=== PATIENT | female | born 1955 | race Caucasian/White ===

== ENCOUNTER 2016-10-17 16:24 | Emergency (ER) | payer OTHER ==
[~2016-10-17] VITALS: Ht 162.6 cm; Wt 79.3 kg
[~2016-10-17 16:24] MED LIST: AMANTADINE100 MG PO; ATORVASTATIN CA80 MG PO; Advair HFA 230/21 IH; Aspirin E.C. PO; BUSPAR15 MG PO; BUSPAR5 MG PO; BUSPIRONE HCL15 MG PO; Buspar PO; CELEXA40 MG PO; CLONAZEPAM2 MG PO; CLOPIDOGREL75 MG PO; DESYREL100 MG PO; GABAPENTIN600 MG PO; HYDROCODON-ACE1 EAC7 PO; KEFLEX500 MG PO; KLONOPIN0.5 M1 NG; KLONOPIN2 MG PO; KlonoPIN PO; LANTUS 3 M100 UNITS1 SC; LEVEMIR FL100 UNITS/ SC; LEVEMIR100 UNIT/1 IJ; LEXAPRO20 MG PO; LO-DOSE ASPIRIN81 M1 PO; LOPRESSOR25 MG PO; MECLIZINE HCL25 MG PO; NEURONTIN600 MG PO; NITROSTAT0.4 MG SL; NOVOLOG 10100 UNITS/ SC; Neurontin PO; OXCARBAZEPINE600 MG PO; OXTELLAR XR600 MG PO; PERCOCET 5/31 TABLET PO; PLAVIX75 MG PO; PROMETHAZINE HC25 M1 PO; PROTONIX40 MG PO; RANITIDINE HCL150 MG PO; REGLAN10 MG PO; Reglan PO; SIMVASTATIN80 MG; SYMMETREL100 M2 PO; SYMMETREL100 MG PO; THEO-DUR,THEOC200 MG PO; TRAMADOL HCL50 MG PO; TRAZODONE HCL100 MG PO; TRICOR145 MG PO; TRILEPTAL300 MG PO; TRILEPTAL600 MG PO; TYLENOL REGULA325 MG PO; VICODIN 5-3001 EACH PO; ZESTORETIC 20-1 EAC1 NG; ZOFRAN ODT4 MG PO; ZOFRAN4 MG PO; [UNRECOGNIZED DRUG - REMARK]; celeXA PO
[2016-10-17 17:25] LABS: EOSINOPHIL (%) 0.9 % (0-5); EOSINOPHIL COUNT 0.1 K/uL (0-0.3); HEMATOCRIT 32.9 % (36.0-46.0); IMMATURE GRANULOCYTE (%) 0.4 % (0.0-0.7); IMMATURE GRANULOCYTE COUNT 0.2 K/uL; MCH 29.2 PG (29.0-34.0); MCV 85.9 FL (83-99); MEAN PLAT.VOLUME 10.1 uM^3 (9.5-12.4); MONOCYTE (%) 5.5 % (3-12); MONOCYTE COUNT 0.3 K/uL (0-0.8); NEUTROPHIL (%) 55.3 % (45-76); NEUTROPHIL COUNT 2.9 K/uL (1.8-6.4); PLATELET COUNT 180 K/uL (156-360); RBC DIS.WIDTH-CV 13.6 % (11.8-14.6); RBC DIS.WIDTH-SD 41.6 % (39-53); RED BLOOD COUNT 3.83 M/uL (3.80-5.20); WHITE BLOOD COUNT 5.3 K/uL (4.1-10.2)
[2016-10-17 17:34] LABS: INTER. NORMALIZED RATIO 1.1; PROTHROMBIN TIME 11.1 (9.2-11.2); PTT 24.8 (25-32)
[2016-10-17 17:43] LABS: CHLORIDE 105 mEq/L (99-109); POTASSIUM 3.8 mEq/L (3.7-5.4); SODIUM 140 mEq/L (136-147)
[2016-10-17 17:44] LABS: MAGNESIUM 1.5 mg/dL (1.3-2.7)
[2016-10-17 17:45] LABS: GLUCOSE 138 mg/dL (70-99)
[2016-10-17 17:46] LABS: ANION GAP 10 MEQ/L (2-14)
[2016-10-17 17:49] LABS: GFR ESTIMATE (CALCULATED) > 59 mL/min/; UREA NITROGEN (BUN) 14 mg/dL (9-23)
[2016-10-17 17:51] LABS: TROP-I INTERPRETATION NEGATIVE; TROPONIN-I < 0.01 ng/mL (0.0-0.30)
[2016-10-17 20:02] VITALS: BP 109/54
== END 2016-10-17 20:13 | disposition left against medical advice (07) ==
LOC: EME → EDBD 16:24 → EME 20:13
PROVIDERS: Emergency Medicine
DX: R07.9 Chest pain, unspecified (principal); E11.9 Type 2 diabetes mellitus without complications; J44.9 Chronic obstructive pulmonary disease, unspecified; I10 Essential (primary) hypertension; I25.2 Old myocardial infarction; G89.29 Other chronic pain; Z85.820 Personal history of malignant melanoma of skin; Z79.4 Long term (current) use of insulin; Z79.82 Long term (current) use of aspirin; Z87.891 Personal history of nicotine dependence
CPT/HCPCS: 71010; 80048; 83735; 84484; 85025; 85610; 85730; 93005; 99281; 99285

== ENCOUNTER 2016-12-17 18:41 | Emergency (ER) | payer OTHER ==
[~2016-12-17] VITALS: Ht 157.5 cm; Wt 83.4 kg
[2016-12-17 21:56] VITALS: BP 134/75
== END 2016-12-17 21:56 | disposition home or self-care (01) ==
LOC: RME 18:41 → EME 18:41 → RME 21:56
PROC: 0HQ0XZZ Repair Scalp Skin, External Approach (ICD-10-PCS; principal; 2016-12-17)
DX: S01.01XA Laceration without foreign body of scalp, initial encounter (principal); E11.9 Type 2 diabetes mellitus without complications; I10 Essential (primary) hypertension; I25.2 Old myocardial infarction; W01.198A Fall on same level from slipping, tripping and stumbling with subsequent striking against other object, initial encounter; Z79.01 Long term (current) use of anticoagulants
CPT/HCPCS: 70450; 99281; 99284

== ENCOUNTER 2017-02-17 17:32 | Inpatient (IN) | payer OTHER ==
[~2017-02-17] VITALS: Ht 165.1 cm; Wt 76.9 kg
[2017-02-17 18:03] LABS: EOSINOPHIL (%) 2.3 % (0-5); EOSINOPHIL COUNT 0.1 K/uL (0-0.3); HEMATOCRIT 36.5 % (36.0-46.0); IMMATURE GRANULOCYTE COUNT 0.1 K/uL; INSTRUMENT ABS NEUTROPHIL CT 2.8 K/uL; LYMPHOCYTE COUNT 1.6 K/uL (1.0-2.8); MCH 30.7 PG (29.0-34.0); MCHC 34.2 G/DL (30.0-36.0); MCV 89.7 FL (83-99); MONOCYTE (%) 5.2 % (3-12); MONOCYTE COUNT 0.3 K/uL (0-0.8); NEUTROPHIL (%) 58.1 % (45-76); NEUTROPHIL COUNT 2.8 K/uL (1.8-6.4); PLATELET COUNT 166 K/uL (156-360); RBC DIS.WIDTH-CV 13.4 % (11.8-14.6); RBC DIS.WIDTH-SD 43.4 % (39-53); RED BLOOD COUNT 4.07 M/uL (3.80-5.20); WHITE BLOOD COUNT 4.9 K/uL (4.1-10.2)
[2017-02-17 18:22] LABS: TROP-I INTERPRETATION NEGATIVE; TROPONIN-I < 0.01 ng/mL (0.0-0.30)
[2017-02-17 18:37] LABS: ADD MIUA? NO; BILIRUBIN NEGATIVE; BLOOD NEGATIVE; COLOR YELLOW ((YELLOW)); GLUCOSE (STRIP) >=500; KETONES NEGATIVE; LEUKOCYTES NEGATIVE; NITRITE NEGATIVE; PROTEIN (STRIP) NEGATIVE; SPECIFIC GRAVITY 1.016 (1.000-1.030); UCUL ADDED? NO; UROBILINOGEN 0.2 MG/DL (0.2-1.0)
[2017-02-17 18:40] LABS: CHLORIDE 102 mEq/L (99-109); POTASSIUM 4.1 mEq/L (3.7-5.4); SODIUM 135 mEq/L (136-147)
[2017-02-17 18:43] LABS: GLUCOSE 368 mg/dL (70-99)
[2017-02-17 18:44] LABS: ANION GAP 11 MEQ/L (2-14)
[2017-02-17 18:45] LABS: TOTAL BILIRUBIN 0.4 mg/dL (0.0-1.0)
[2017-02-17 18:46] LABS: ALKALINE PHOSPHATASE 92 IU/L (3-129); GFR ESTIMATE (CALCULATED) > 59 mL/min/
[2017-02-17 18:47] LABS: UREA NITROGEN (BUN) 15 mg/dL (9-23)
[2017-02-17 19:02] LABS: PROTHROMBIN TIME 10.5 (9.2-11.2)
[2017-02-17] MEDS ORDERED: HYDROCODON-ACE1 EAC9 PO (22:46)
[2017-02-17] MEDS ORDERED: BACTRIM,SEPT1 TABLET PO (22:47)
[2017-02-17] MEDS ORDERED: GABAPENTIN600 MG PO (22:48)
[2017-02-17] MEDS ORDERED: TOPROL XL25 MG PO (22:49)
[2017-02-17] MEDS ORDERED: PRILOSEC20 MG PO (22:50)
[2017-02-17] MEDS ORDERED: LEXAPRO20 MG PO (22:52)
[2017-02-18] VITALS: BP 139/65
[2017-02-18 03:55] VITALS: BP 124/57
[2017-02-18 07:29] LABS: HEMATOCRIT 32.6 % (36.0-46.0); MCH 30.6 PG (29.0-34.0); MCHC 33.7 G/DL (30.0-36.0); MCV 90.6 FL (83-99); MEAN PLAT.VOLUME 10.3 uM^3 (9.5-12.4); PLATELET COUNT 188 K/uL (156-360); RBC DIS.WIDTH-CV 13.2 % (11.8-14.6); RBC DIS.WIDTH-SD 43.8 % (39-53); WHITE BLOOD COUNT 4.1 K/uL (4.1-10.2)
[2017-02-18 07:30] LABS: Estimated Average Glucose 192 mg/dL (70-123); HEMOGLOBIN A1c (GLYCOHEMOGLOB) 8.3 % HGB (Below 5.7)
[2017-02-18 07:35] LABS: POINT-OF-CARE METER ID UU14188625
[2017-02-18 07:52] VITALS: BP 139/66
[2017-02-18 08:00] LABS: ALKALINE PHOSPHATASE 82 IU/L (3-129); ANION GAP 11 MEQ/L (2-14); CHLORIDE 104 MEQ/L (99-109); GFR ESTIMATE (CALCULATED) > 59 mL/min/; GLUCOSE 311 mg/dL (70-99); HDL CHOLESTEROL 27 MG/DL (Desirable>=50); NON-HDL CHOLESTEROL 98 mg/dL (Desirable<160); POTASSIUM 4.3 MEQ/L (3.7-5.4); SAMPLE HEMOLYSIS CHECK 0; SAMPLE ICTERIC CHECK 0; SAMPLE LIPEMIA CHECK 1; SODIUM 141 MEQ/L (136-147); TOTAL BILIRUBIN 0.3 MG/DL (0.0-1.0); TOTAL CHOLESTEROL 125 mg/dL (Desirable<200); TRIGLYCERIDES 667 MG/DL (Normal: <150); UREA NITROGEN (BUN) 12 mg/dL (9-23)
[2017-02-18 11:25] VITALS: BP 134/53
[2017-02-18 11:33] LABS: POINT-OF-CARE METER ID UU14188625
[2017-02-18 15:25] VITALS: BP 150/63
[2017-02-18 18:20] LABS: ADD MIUA? NO; BILIRUBIN NEGATIVE; BLOOD NEGATIVE; COLOR YELLOW ((YELLOW)); GLUCOSE (STRIP) >=500; KETONES NEGATIVE; LEUKOCYTES NEGATIVE; NITRITE NEGATIVE; PROTEIN (STRIP) NEGATIVE; SPECIFIC GRAVITY 1.016 (1.000-1.030); UCUL ADDED? NO; UROBILINOGEN 0.2 MG/DL (0.2-1.0)
[2017-02-18 20:00] VITALS: BP 133/59
[2017-02-18 21:46] LABS: POINT-OF-CARE METER ID UU14188625; POINT-OF-CARE USER ID BHSKTD
[2017-02-19] VITALS (8 sets, daily range): BP systolic 86–148; BP diastolic 48–67
[2017-02-19 07:32] LABS: POINT-OF-CARE METER ID UU14188625
[2017-02-19 11:46] LABS: POINT-OF-CARE METER ID UU14188625
[2017-02-19 21:02] LABS: POINT-OF-CARE METER ID UU14188625
[2017-02-20 03:41] VITALS: BP 123/60
[2017-02-20 07:25] VITALS: BP 106/54
[2017-02-20] MEDS ORDERED: METOPROLOL SUCC25 MG PO (11:42)
[2017-02-20] MEDS ORDERED: BUSPAR15 MG PO (11:43)
[2017-02-20 11:44] VITALS: BP 115/58
[2017-02-20] MEDS ORDERED: HYDROCODON-ACE1 EAC9 PO (12:52)
[2017-02-20] MEDS ORDERED: CLONAZEPAM2 MG PO (12:52)
== END 2017-02-20 15:24 | DRG 93 ==
LOC: EME 17:32 → EDOF 22:30 → 5SOUTH 22:30
PROVIDERS: Emergency Medicine; Internal Medicine; Physician Assistant Medical
DX: R29.6 Repeated falls (principal); I25.10 Atherosclerotic heart disease of native coronary artery without angina pectoris; J44.9 Chronic obstructive pulmonary disease, unspecified; I10 Essential (primary) hypertension; E11.42 Type 2 diabetes mellitus with diabetic polyneuropathy; K58.9 Irritable bowel syndrome, unspecified; F32.9 Major depressive disorder, single episode, unspecified; F41.9 Anxiety disorder, unspecified; K21.9 Gastro-esophageal reflux disease without esophagitis; E11.43 Type 2 diabetes mellitus with diabetic autonomic (poly)neuropathy; M19.90 Unspecified osteoarthritis, unspecified site; Z79.4 Long term (current) use of insulin; Z95.5 Presence of coronary angioplasty implant and graft
CPT/HCPCS: 70450; 70551; 71010; 72070; 72100; 72125; 74000; 80053; 80061; 81003; 82607; 82948; 83036; 84443; 84484; 85025; 85027; 85610; 93005; 93306; 93880; 97530 GO; 99281; 99285; J1644; J1815; J2270; J2405; J7030

== ENCOUNTER 2017-05-03 22:39 | Inpatient (IN) | payer OTHER ==
[~2017-05-03] VITALS: Ht 160 cm; Wt 85.7 kg
[~2017-05-03 22:39] MED LIST changes: +BACTRIM,SEPT1 TABLET PO; +HYDROCODON-ACE1 EAC9 PO; +METOPROLOL SUCC25 MG PO; -NOVOLOG 10100 UNITS/ SC; +NOVOLOG PE100 UNITS/ SC; +PRILOSEC20 MG PO; +TOPROL XL25 MG PO; -ZESTORETIC 20-1 EAC1 NG; +ZESTORETIC 20-1 EAC1 PO
[2017-05-03 23:48] LABS: EOSINOPHIL (%) 3.3 % (0-5); EOSINOPHIL COUNT 0.2 K/uL (0-0.3); HEMATOCRIT 28.8 % (36.0-46.0); IMMATURE GRANULOCYTE (%) 0.8 % (0.0-0.7); LYMPHOCYTE COUNT 2.3 K/uL (1.0-2.8); MCH 31.1 PG (29.0-34.0); MCHC 35.1 G/DL (30.0-36.0); MCV 88.6 FL (83-99); MONOCYTE (%) 5.2 % (3-12); MONOCYTE COUNT 0.3 K/uL (0-0.8); NEUTROPHIL (%) 42.1 % (45-76); PLATELET COUNT 148 K/uL (156-360); RBC DIS.WIDTH-CV 13.2 % (11.8-14.6); RBC DIS.WIDTH-SD 42.7 % (39-53); RED BLOOD COUNT 3.25 M/uL (3.80-5.20); WHITE BLOOD COUNT 4.8 K/uL (4.1-10.2)
[2017-05-03 23:54] LABS: PROTHROMBIN TIME 10.5 SEC (10.2-12.9)
[2017-05-04 00:06] LABS: CHLORIDE 102 mEq/L (99-109); POTASSIUM 4.3 mEq/L (3.7-5.4)
[2017-05-04 00:07] LABS: SODIUM 135 mEq/L (136-147)
[2017-05-04 00:08] LABS: GLUCOSE 174 mg/dL (70-99)
[2017-05-04 00:10] LABS: ANION GAP 10 MEQ/L (2-14)
[2017-05-04 00:12] LABS: GFR ESTIMATE (CALCULATED) > 59 mL/min/
[2017-05-04 00:13] LABS: UREA NITROGEN (BUN) 13 mg/dL (9-23)
[2017-05-04] MEDS ORDERED: CLONAZEPAM2 MG PO (00:25)
[2017-05-04] MEDS ORDERED: ASPIR 8181 M1 PO (00:27)
[2017-05-04] MEDS ORDERED: CYANOCOBALAM1000 MCG PO (00:27)
[2017-05-04] MEDS ORDERED: IBUPROFEN800 MG PO (00:27)
[2017-05-04 00:48] LABS: HDL CHOLESTEROL 34 MG/DL (Desirable>=50); LDL CHOLESTEROL 20 mg/dL (Desirable<100); NON-HDL CHOLESTEROL 74 mg/dL (Desirable<160); TOTAL CHOLESTEROL 108 mg/dL (Desirable<200); TRIGLYCERIDES 269 MG/DL (Normal: <150)
[2017-05-04 03:07] VITALS: BP 185/79
[2017-05-04 06:00] LABS: TROP-I INTERPRETATION NEGATIVE; TROPONIN-I < 0.01 ng/mL (0.0-0.30)
[2017-05-04 08:17] LABS: POINT-OF-CARE METER ID UU14188625
[2017-05-04 11:05] VITALS: BP 156/80
[2017-05-04 11:39] LABS: POINT-OF-CARE METER ID UU14188625
[2017-05-04 13:52] LABS: TROP-I INTERPRETATION NEGATIVE; TROPONIN-I < 0.01 ng/mL (0.0-0.30)
== END 2017-05-04 15:18 | disposition home or self-care (01) | DRG 103 ==
LOC: EME 22:39 → EDOF 05-04 00:56 → ENRESERV 05-04 00:59 → 5SOUTH 05-04 02:31
PROVIDERS: Emergency Medicine; Internal Medicine
DX: G44.209 Tension-type headache, unspecified, not intractable (principal); E11.42 Type 2 diabetes mellitus with diabetic polyneuropathy; I10 Essential (primary) hypertension; I25.10 Atherosclerotic heart disease of native coronary artery without angina pectoris; J44.9 Chronic obstructive pulmonary disease, unspecified; E78.5 Hyperlipidemia, unspecified; F32.9 Major depressive disorder, single episode, unspecified; F41.9 Anxiety disorder, unspecified; G25.81 Restless legs syndrome; G40.909 Epilepsy, unspecified, not intractable, without status epilepticus; K58.9 Irritable bowel syndrome, unspecified; M19.90 Unspecified osteoarthritis, unspecified site; I25.2 Old myocardial infarction; Z98.61 Coronary angioplasty status; Z79.02 Long term (current) use of antithrombotics/antiplatelets; Z79.82 Long term (current) use of aspirin; Z85.820 Personal history of malignant melanoma of skin; Z87.891 Personal history of nicotine dependence; Z80.6 Family history of leukemia; Z82.49 Family history of ischemic heart disease and other diseases of the circulatory system; Z79.4 Long term (current) use of insulin
CPT/HCPCS: 36415; 70450; 80048; 80053; 80061; 82948; 83036; 84484; 85025; 85610; 85730; 93005; 99281; 99285; J1650; J1815; J2270; J2765; J7030

== ENCOUNTER 2017-06-02 20:51 | Emergency (ER) | payer OTHER ==
[~2017-06-02] VITALS: Ht 162.6 cm; Wt 84.6 kg
[~2017-06-02 20:51] MED LIST changes: +ASPIR 8181 M1 PO; +CYANOCOBALAM1000 MCG PO; +IBUPROFEN800 MG PO
[2017-06-02 21:21] LABS: HEMATOCRIT 29.9 % (36.0-46.0); MCH 31.1 PG (29.0-34.0); MCHC 35.1 G/DL (30.0-36.0); MCV 88.5 FL (83-99); MEAN PLAT.VOLUME 8.6 uM^3 (9.5-12.4); PLATELET COUNT 148 K/uL (156-360); RBC DIS.WIDTH-CV 13.3 % (11.8-14.6); RBC DIS.WIDTH-SD 42.8 % (39-53); RED BLOOD COUNT 3.38 M/uL (3.80-5.20); WHITE BLOOD COUNT 4.7 K/uL (4.1-10.2)
[2017-06-02 21:29] LABS: CHLORIDE 94 mEq/L (99-109); POTASSIUM 3.8 mEq/L (3.7-5.4); SODIUM 129 mEq/L (136-147)
[2017-06-02 21:31] LABS: GLUCOSE 261 mg/dL (70-99)
[2017-06-02 21:33] LABS: ANION GAP 10 MEQ/L (2-14); TOTAL BILIRUBIN 0.4 mg/dL (0.0-1.0)
[2017-06-02 21:35] LABS: ALKALINE PHOSPHATASE 83 IU/L (3-129); GFR ESTIMATE (CALCULATED) > 59 mL/min/
[2017-06-02 21:36] LABS: UREA NITROGEN (BUN) 10 mg/dL (9-23)
[2017-06-02 21:37] LABS: DIRECT BILIRUBIN 0.2 mg/dL (0.0-0.3)
[2017-06-02 21:39] LABS: LIPASE 34 U/L (1.0-51.0)
[2017-06-02 22:13] LABS: ADD MIUA? YES; BILIRUBIN NEGATIVE; BLOOD NEGATIVE; COLOR STRAW ((YELLOW)); GLUCOSE (STRIP) 150; KETONES NEGATIVE; LEUKOCYTES TRACE; NITRITE NEGATIVE; PROTEIN (STRIP) NEGATIVE; SPECIFIC GRAVITY 1.011 (1.000-1.030); UROBILINOGEN 0.2 MG/DL (0.2-1.0)
[2017-06-02 22:28] LABS: BACTERIA NONE SEEN /HPF; EPITHELIAL CELLS RARE /HPF; MUCUS NONE SEEN /LPF; RED BLOOD CELLS 0-5 /HPF (0-5); UCUL ADDED? YES
[2017-06-03] MEDS ORDERED: CIPRO500 MG PO (00:13)
[2017-06-03 01:00] VITALS: BP 119/58
== END 2017-06-03 01:00 | disposition home or self-care (01) ==
LOC: EME → EDBD 20:51 → EME 06-03 01:00
PROVIDERS: Emergency Medicine
DX: N39.0 Urinary tract infection, site not specified (principal); R10.10 Upper abdominal pain, unspecified; E11.9 Type 2 diabetes mellitus without complications; J44.9 Chronic obstructive pulmonary disease, unspecified; E78.5 Hyperlipidemia, unspecified; I10 Essential (primary) hypertension; I25.2 Old myocardial infarction; K21.9 Gastro-esophageal reflux disease without esophagitis; Z79.4 Long term (current) use of insulin; Z79.02 Long term (current) use of antithrombotics/antiplatelets; Z87.891 Personal history of nicotine dependence; Z79.82 Long term (current) use of aspirin
CPT/HCPCS: 74177; 80048; 80076; 81003; 83690; 85027; 87086 GA; 93005; 99281; 99285; J1885; J2405; J7030

== ENCOUNTER → 2017-06-17 | Outpatient (CLI) | payer OTHER ==
[~2017-06-17] MED LIST changes: +CIPRO500 MG PO
== END | disposition home or self-care (01) ==
LOC: NUC 08:21
DX: R68.81 Early satiety (principal)
CPT/HCPCS: 78264; A9541

== ENCOUNTER 2017-07-13 10:15 | Emergency (ER) | payer OTHER ==
[~2017-07-13] VITALS: Ht 162.6 cm; Wt 84.3 kg
[2017-07-13 11:16] LABS: HEMATOCRIT 30.9 % (36.0-46.0); MCH 30.5 PG (29.0-34.0); MCHC 34.3 G/DL (30.0-36.0); MCV 88.8 FL (83-99); MEAN PLAT.VOLUME 9.5 uM^3 (9.5-12.4); PLATELET COUNT 150 K/uL (156-360); RBC DIS.WIDTH-CV 12.8 % (11.8-14.6); RBC DIS.WIDTH-SD 41.6 % (39-53); RED BLOOD COUNT 3.48 M/uL (3.80-5.20); WHITE BLOOD COUNT 4.5 K/uL (4.1-10.2)
[2017-07-13 11:23] LABS: PROTHROMBIN TIME 11.5 SEC (10.2-12.9)
[2017-07-13 11:25] LABS: PTT 26.3 SEC (25-37)
[2017-07-13 11:27] LABS: CHLORIDE 104 mEq/L (99-109); POTASSIUM 3.7 mEq/L (3.7-5.4); SODIUM 137 mEq/L (136-147)
[2017-07-13 11:29] LABS: GLUCOSE 163 mg/dL (70-99)
[2017-07-13 11:31] LABS: ANION GAP 11 MEQ/L (2-14)
[2017-07-13 11:33] LABS: GFR ESTIMATE (CALCULATED) > 59 mL/min/
[2017-07-13 11:34] LABS: UREA NITROGEN (BUN) 6 mg/dL (9-23)
[2017-07-13] MEDS ORDERED: REGLAN10 MG PO (13:41)
[2017-07-13] MEDS ORDERED: IMITREX25 MG PO (13:41)
[2017-07-13 13:59] VITALS: BP 158/82
== END 2017-07-13 14:01 | disposition home or self-care (01) ==
LOC: EME 10:15
PROVIDERS: Emergency Medicine
DX: R51 Headache (principal); I10 Essential (primary) hypertension; E11.9 Type 2 diabetes mellitus without complications; E78.5 Hyperlipidemia, unspecified; Z79.4 Long term (current) use of insulin; J44.9 Chronic obstructive pulmonary disease, unspecified; I25.2 Old myocardial infarction; K21.9 Gastro-esophageal reflux disease without esophagitis; G40.909 Epilepsy, unspecified, not intractable, without status epilepticus; F32.9 Major depressive disorder, single episode, unspecified; F41.9 Anxiety disorder, unspecified; Z87.442 Personal history of urinary calculi; Z88.8 Allergy status to other drugs, medicaments and biological substances; Z87.891 Personal history of nicotine dependence; Z85.820 Personal history of malignant melanoma of skin; Z79.82 Long term (current) use of aspirin
CPT/HCPCS: 70496; 80048; 81003; 85027; 85610; 85730; 99281; 99285; J2765; J3030; J7030

== ENCOUNTER 2018-02-01 13:16 | Emergency (ER) | payer OTHER ==
[~2018-02-01] VITALS: Ht 154.9 cm; Wt 86.8 kg
[~2018-02-01 13:16] MED LIST changes: +IMITREX25 MG PO
[2018-02-01 14:27] LABS: BASOPHIL (%) 0.3 % (0-1); BASOPHIL COUNT 0.1 K/uL (0-0.1); EOSINOPHIL (%) 0.2 % (0-5); HEMATOCRIT 45.6 % (36.0-46.0); HEMOGLOBIN 15.7 G/DL (11.9-15.5); IMMATURE GRANULOCYTE (%) 0.5 % (0.0-0.7); LYMPHOCYTE (%) 15.2 % (15-42); LYMPHOCYTE COUNT 2.2 K/uL (1.0-2.8); MCH 30.5 PG (29.0-34.0); MCHC 34.4 G/DL (30.0-36.0); MCV 88.5 FL (83-99); MONOCYTE (%) 4.4 % (3-12); MONOCYTE COUNT 0.6 K/uL (0-0.8); NEUTROPHIL (%) 79.4 % (45-76); NEUTROPHIL COUNT 11.6 K/uL (1.8-6.4); PLATELET COUNT 263 K/uL (156-360); RBC DIS.WIDTH-CV 13.7 % (11.8-14.6); RBC DIS.WIDTH-SD 43.5 % (39-53); RED BLOOD COUNT 5.15 M/uL (3.80-5.20); WHITE BLOOD COUNT 14.6 K/uL (4.1-10.2)
[2018-02-01 14:28] LABS: CARBON DIOXIDE (BICARBONATE) 27.8 MEQ/L (20-31)
[2018-02-01 14:35] LABS: CHLORIDE 96 mEq/L (99-109); POTASSIUM 4.1 mEq/L (3.7-5.4); SODIUM 141 mEq/L (136-147)
[2018-02-01 14:37] LABS: GLUCOSE 400 mg/dL (70-99)
[2018-02-01 14:40] LABS: CREATININE 1.3 mg/dL (0.6-1.3); GFR ESTIMATE (CALCULATED) 44 mL/min/
[2018-02-01 14:41] LABS: UREA NITROGEN (BUN) 19 mg/dL (9-23)
[2018-02-01 15:13] LABS: APPEARANCE CLEAR ((CLEAR)); BILIRUBIN NEGATIVE; BLOOD NEGATIVE; COLOR YELLOW ((YELLOW)); GLUCOSE (STRIP) >=500; KETONES 20; LEUKOCYTES NEGATIVE; NITRITE NEGATIVE; PROTEIN (STRIP) >=500; SPECIFIC GRAVITY 1.024 (1.000-1.030); UROBILINOGEN 0.2 MG/DL (0.2-1.0)
[2018-02-01 15:21] LABS: BACTERIA NONE SEEN /HPF; EPITHELIAL CELLS RARE /HPF; HYALINE CASTS 0-5 /LPF; MUCUS TRACE /LPF; WHITE BLOOD CELLS 0-5 /HPF (0-5)
[2018-02-01 18:00] VITALS: BP 184/90
== END 2018-02-01 19:22 | disposition home or self-care (01) ==
LOC: EME 13:16
PROVIDERS: Emergency Medicine
DX: E11.65 Type 2 diabetes mellitus with hyperglycemia (principal); E78.5 Hyperlipidemia, unspecified; F32.9 Major depressive disorder, single episode, unspecified; F41.9 Anxiety disorder, unspecified; G40.909 Epilepsy, unspecified, not intractable, without status epilepticus; I10 Essential (primary) hypertension; I25.2 Old myocardial infarction; J44.9 Chronic obstructive pulmonary disease, unspecified; K21.9 Gastro-esophageal reflux disease without esophagitis; Z79.4 Long term (current) use of insulin; Z85.820 Personal history of malignant melanoma of skin; Z87.442 Personal history of urinary calculi; Z87.891 Personal history of nicotine dependence; Z88.8 Allergy status to other drugs, medicaments and biological substances
CPT/HCPCS: 80048; 81003; 82010; 82803; 82948; 85025; 99281; 99285; J2405; J7030

== ENCOUNTER 2018-03-11 19:31 | Emergency (ER) | payer OTHER ==
[~2018-03-11] VITALS: Ht 157.5 cm; Wt 62.5 kg
[2018-03-11 20:03] LABS: HEMATOCRIT 36.4 % (36.0-46.0); HEMOGLOBIN 12.7 G/DL (11.9-15.5); MCHC 34.9 G/DL (30.0-36.0); MCV 88.8 FL (83-99); PLATELET COUNT 146 K/uL (156-360); RBC DIS.WIDTH-CV 13.2 % (11.8-14.6); RBC DIS.WIDTH-SD 43.4 % (39-53); WHITE BLOOD COUNT 4.6 K/uL (4.1-10.2)
[2018-03-11 20:11] LABS: ALBUMIN 4.1 g/dL (3.2-4.8); CHLORIDE 102 mEq/L (99-109); POTASSIUM 3.9 mEq/L (3.7-5.4); SODIUM 141 mEq/L (136-147)
[2018-03-11 20:13] LABS: GLUCOSE 263 mg/dL (70-99); TOTAL PROTEIN 6.2 g/dL (6.4-8.3)
[2018-03-11 20:15] LABS: TOTAL BILIRUBIN 0.3 mg/dL (0.0-1.0)
[2018-03-11 20:17] LABS: ALKALINE PHOSPHATASE 96 IU/L (3-129); CREATININE 0.9 mg/dL (0.6-1.3); GFR ESTIMATE (CALCULATED) > 59 mL/min/
[2018-03-11 20:18] LABS: UREA NITROGEN (BUN) 15 mg/dL (9-23)
[2018-03-11 20:19] LABS: AST (GOT) 26 IU/L (2-34)
[2018-03-11 20:20] LABS: ALT (GPT) 19 IU/L (3-49); LIPASE 40 U/L (1.0-51.0)
[2018-03-11 21:26] LABS: APPEARANCE CLEAR ((CLEAR)); BILIRUBIN NEGATIVE; BLOOD NEGATIVE; COLOR YELLOW ((YELLOW)); GLUCOSE (STRIP) >=500; KETONES NEGATIVE; LEUKOCYTES TRACE; NITRITE NEGATIVE; PROTEIN (STRIP) 100; UROBILINOGEN 0.2 MG/DL (0.2-1.0)
[2018-03-11 21:50] LABS: BACTERIA NONE SEEN /HPF; EPITHELIAL CELLS RARE /HPF; HYALINE CASTS 0-5 /LPF; MUCUS TRACE /LPF; RED BLOOD CELLS 0-5 /HPF (0-5); UCUL ADDED? YES
[2018-03-11 22:53] VITALS: BP 167/66
== END 2018-03-11 23:04 | disposition home or self-care (01) ==
LOC: EME → EDBD 19:31 → EME 23:04
PROVIDERS: Emergency Medicine
DX: R10.31 Right lower quadrant pain (principal); K76.89 Other specified diseases of liver; N28.1 Cyst of kidney, acquired; E11.9 Type 2 diabetes mellitus without complications; Z79.4 Long term (current) use of insulin; E78.5 Hyperlipidemia, unspecified; F32.9 Major depressive disorder, single episode, unspecified; F41.9 Anxiety disorder, unspecified; G40.909 Epilepsy, unspecified, not intractable, without status epilepticus; I10 Essential (primary) hypertension; I25.2 Old myocardial infarction; J44.9 Chronic obstructive pulmonary disease, unspecified; K21.9 Gastro-esophageal reflux disease without esophagitis; Z85.820 Personal history of malignant melanoma of skin; Z87.442 Personal history of urinary calculi; Z87.891 Personal history of nicotine dependence; Z88.8 Allergy status to other drugs, medicaments and biological substances
CPT/HCPCS: 74177; 80053; 81003; 83690; 85027; 87086; 99281; 99284; J7030